=== PATIENT | male | born 1990 | race Caucasian/White ===

== ENCOUNTER 2019-06-20 10:14 | Emergency (ER) | payer OTHER ==
[2019-06-20] MEDS ORDERED: KETOROLAC TROMETHAMINE INJ/PF 30 MG/1 ML SDV IM ONE (10:23)
[2019-06-20 10:26] VITALS: BP 145/87
--- NOTE | 2019-06-20 10:26 | ER Document Report ---
ED Medical Screen (RME) - General Chief Complaint: Neck Pain < 24hrs old Stated Complaint: NECK PAIN Time Seen by Provider: 06/20/19 10:18 Notes: Patient is a 29-year-old male who presents to the emergency department with a chief complaint of neck pain. Patient reports 3 weeks ago he did run a marathon. Patient reports he did rest on the concrete for long period of time afterwards. Patient reports he is having neck pain that radiates down the left shoulder and numbness down the left arm. Patient [place]. Patient reports he was put on Flexeril, ibuprofen, Tylenol without much relief. Patient reports he did see a chiropractor last week and did receive a massage 2 days ago. Patient reports he is not feeling any better. Patient concerned he may have a pinched nerve. Patient states that he had not done any imaging. Patient denies any fall or injury. Physical Exam - Extremities Notes: Patient has full range of motion to the left shoulder joint. Patient does have tenderness to the left trapezius muscle and cervical midline tenderness with palpation. Course - Re-evaluation Re-evalutation: 06/20/19 10:25 I have greeted and performed a rapid initial assessment of this patient. A comprehensive ED assessment and evaluation of the patient, analysis of test results and completion of the medical decision making process will be conducted by additional ED providers.
--- NOTE | 2019-06-20 10:52 | RADIOLOGY REPORT (SQ) ---
EXAM DESCRIPTION: CERV SP 4 OR 5 VIEWS COMPLETED DATE/TIME: 06/20/2019 10:43 am REASON FOR STUDY: neck pain x 3 weeks COMPARISON: None. NUMBER OF VIEWS: Five views. TECHNIQUE: AP, lateral, obliques and odontoid radiographic images acquired of the cervical spine. LIMITATIONS: None. FINDINGS: MINERALIZATION: Normal. ALIGNMENT: Anatomic. VERTEBRAE: Vertebral bodies of normal height. DISCS: There is mild disc narrowing at C5-6. FORAMINA: No osteophytes or foraminal narrowing. LATERAL AND POSTERIOR ELEMENTS: Facets, lateral masses and spinous processes without significant find ings. HARDWARE: None in the spine. SOFT TISSUES: No masses or calcifications. Lung apices clear. OTHER: No other significant finding. IMPRESSION: Mild C5-6 disc disease. No acute finding. TECHNICAL DOCUMENTATION: JOB ID: [id number] [employer]- All Rights Reserved Reading location - IP/workstation name: [email or web address]
--- NOTE | 2019-06-20 11:10 | ER Document Report ---
HPI - HPI Time Seen by Provider: 06/20/19 10:18 Pain Level: 3 Context: Patient is a 29-year-old male who presents to the emergency department with a chief complaint of neck pain. Patient reports 3 weeks ago he did run a marathon. Patient reports he did rest on the concrete for long period of time afterwards. Patient reports he is having neck pain that radiates down the left shoulder and numbness down the left arm. Patient reports [place]. Patient reports he was put on Flexeril, ibuprofen, Tylenol without much relief. Patient reports he did see a chiropractor last week and did receive a massage 2 days ago. Patient reports he is not feeling any better. Patient concerned he may have a pinched nerve. Patient states that he had not done any imaging. Patient denies any fall or injury. - REPRODUCTIVE Reproductive: DENIES: : Past Medical History - General Information source: Patient - Social History Smoking Status: Never Smoker Chew tobacco use (# tins/day): No Frequency of alcohol use: None Drug Abuse: None Lives with: Spouse/Significant other Family History: None Patient has suicidal ideation: No Patient has homicidal ideation: No - Past Medical History Cardiac Medical History: Reports: None Pulmonary Medical History: Reports: None EENT Medical History: Reports: None Neurological Medical History: Reports: None Endocrine Medical History: Reports: None Renal/ Medical History: Reports: None Malignancy Medical History: Reports None GI Medical History: Reports: None Musculoskeletal Medical History: Reports None Skin Medical History: Reports None Psychiatric Medical History: Reports: None Traumatic Medical History: Reports: None Infectious Medical History: Reports: None Surgical Hx: Negative Vertical Provider Document - CONSTITUTIONAL Agree With Documented VS: Yes Exam Limitations: No Limitations General Appearance: No Apparent Distress - INFECTION CONTROL TRAVEL OUTSIDE OF THE [place] IN LAST 30 DAYS: No - HEENT HEENT: Atraumatic, Normal ENT Exam, Normocephalic, PERRLA - NECK Neck: Normal Inspection Notes: Patient does have cervical midline tenderness to C5 and C6. - RESPIRATORY Respiratory: Breath Sounds Normal, No Respiratory Distress - CARDIOVASCULAR Cardiovascular: Regular Rate, Regular Rhythm - GI/ABDOMEN Gastrointestinal: Abdomen Soft, Abdomen Non-Tender - MUSCULOSKELETAL/EXTREMETIES Musculoskeletal/Extremeties: FROM, Non-Tender, No Edema Notes: Patient does have point tenderness to the left trapezius muscle. Patient does have full range of motion to the left shoulder joint. 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 Bilateral and equal brachial and radial pulses strong +2. No point tenderness to the left shoulder joint. Course - Re-evaluation Re-evalutation: 06/20/19 11:14 Patient's x-ray does show mild disease in C5 and C6. Patient reports his pain is worse after sleeping on his side at night. Patient reports the numbness in his arm does get somewhat relieved throughout the day, patient does have equal strong bilateral felled seam operator chainstitch.. Did inform the patient ultimately does need to follow- up with either orthopedics and to make his medical staff aware of his symptoms. We will place the patient on oral prednisone. I did inform the patient to keep taking the muscle relaxer, anti-inflammatories. Patient given strict return precautions. - Vital Signs Vital signs: Temp Pulse Resp BP Pulse Ox 97.6 F 73 16 145/87 H 100 06/20/19 10:23 06/20/19 10:23 06/20/19 10:23 06/20/19 10:23 06/20/19 10:23 - Diagnostic Test Radiology reviewed: Reports reviewed Radiology results interpreted by me: 06/20/19 11:04 Cervical Spine X-Ray 06/20/19 10:23 IMPRESSION: Mild C5-6 disc disease. No acute finding. Discharge - Discharge Clinical Impression: Neck pain Condition: Stable Disposition: HOME, SELF-CARE Additional Instructions: Today you are seen in the emergency department for neck pain and left upper back pain. It does appear that you do have a possible cervical strain and muscle spasms to the left upper back. I would continue using the anti-inflammatories, muscle relaxers. I am prescribing you a steroid Dosepak. Your x-ray did show mild disease in C5 and C6 of the cervical spine. I do recommend following up with [facility] as you may need a referral to orthopedics. Please return to the emergency department if you develop any new numbness or tingling down your arm, inability to move your arm, or any new or worsening symptoms. Neck Injury (Cervical Strain) You have a neck strain. This is an injury to the muscles and ligaments in the neck. There is no evidence of a fracture of the neck bones. Also, no injury to the spinal cord or nerve roots was detected. Usually, stiffness and pain INCREASE for the first 24-48 hours after the injury. The pain will gradually resolve and the neck will become more mobile. Most patients are back at work or school within a few days. Typically, complete healing takes about two or three weeks. The usual initial treatment is rest and cold packs. A neck collar may be placed to keep the muscles of the neck at rest. Antiinflammatory and muscle re laxing medication are often used to reduce the spasm and irritation. You should call the doctor, or go to the hospital, if you develop numbness or weakness in any extremity, problems with your bladder or bowel, or pain radiating down the arms. Prescriptions: Prednisone [Deltasone 10 mg Tablet] 10 mg PO ASDIR PRN #21 tablet PRN Reason:
== END 2019-06-20 11:18 | disposition home or self-care (01) ==
LOC: ER 10:14
DX: M54.2 Cervicalgia (principal); R20.0 Anesthesia of skin
CPT/HCPCS: 72050; J1885